=== PATIENT | female | born 1955 | race Caucasian/White ===

== ENCOUNTER 2022-11-11 11:24 | Emergency (ER) | payer MEDICARE, OTHER ==
[~2022-11-11] VITALS: Ht 315 cm; Wt 64.4 kg
--- OUTSIDE RECORDS SUMMARY | ~2022-11-11 | XMS | Continuity of Care Document ---
Demographics + + + | Address | [address] [place] [address] | | | [place] [address] | + + + | Preferred Language | Unknown | + + + | Marital Status | Never | + + + | Rastafari Affiliation | Unknown | + + + | Race | White | + + + | Ethnic Group | Not or | + + + Author + + + | Author | [facility] | + + + | Organization | [facility] | + + + | Address | [address] | | | [place] [address] | + + + | Phone | | + + + Care Team Providers + + + + | Care Associate Curator Name | Role | Phone | + + + + Unavailable | Unavailable | + + + + Allergies No information. Encounters No information. Functional Status No information. Immunizations No information. Medications No information. Problems + + + + | date | description | facility | + + + + | 2022-10-12 13:43 | UNSPECIFIED ABDOMINAL PAIN | [facility] | | | | | + + + + | 2022-10-12 13:43 | ALLERGY STATUS TO OTHER | [facility] | | | ANTIBIOTIC AGENTS STATUS | | + + + + | 2022-11-02 08:30 | DVTRCLI OF INTEST, PART | [facility] | | | UNSP, W/O PERF O | | + + + + | 2022-11-02 08:30 | LEFT LOWER QUADRANT PAIN | [facility] | + + + + | 2022-11-04 08:58 | DVRTCLOS OF LG INT W/O | [facility] | | | PERFORATION OR ABSCESS W/O | | + + + + | 2022-11-04 08:58 | DVTRCLI OF INTEST, PART | [facility] | | | UNSP, W/O PERF O | | + + + + | 2022-11-04 08:58 | DVTRCLI OF INTEST, PART | [facility] | | | UNSP, W/O PERF OR ABSCESS | | | | W/O BLEED | | + + + + | 2022-11-04 08:58 | LEFT LOWER QUADRANT PAIN | [facility] | + + + + | 2022-11-04 09:00 | DVTRCLI OF INTEST, PART | [facility] | | | UNSP, W/O PERF O | | + + + + | 2022-11-04 09:00 | LEFT LOWER QUADRANT PAIN | [facility] | + + + + Procedures No information. Results/Labs No information. Social History +--------+ + + | date | description | facility | +--------+ + + Vital Signs No information."
--- OUTSIDE RECORDS SUMMARY | ~2022-11-11 | XMS | Continuity of Care Document ---
Demographics + + + | Address | [address] [place] [address] | | | [place] [address] | + + + | Preferred Language | Unknown | + + + | Marital Status | Never | + + + | Gnosticist Affiliation | Unknown | + + + | Race | White | + + + | Ethnic Group | Not or | + + + Author + + + | Author | [facility] | + + + | Organization | [facility] | + + + | Address | [address] | | | [place] [address] | + + + | Phone | | + + + Care Team Providers + + + + | Care Field Support Technician Name | Role | Phone | + [...]
[~2022-11-11 11:24] MED LIST: HYDROCODON-ACE1 EA10 PO; HYDROXYZINE HCL50 MG PO; ONDANSETRON ODT8 MG PO
--- OUTSIDE RECORDS SUMMARY | 2022-11-11 11:26 | XMS ---
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 Anna has no Care Guidelines for this patient. EVonda VISIT COUNT (12 MO.) 2 [facility] TOTAL 2 NOTE: Visits indicate total known visits. ED/C VISIT TRACKING (12 MO.) [facility]22 [facility] [place] [facility] COMPLAINT: - ABD PAIN, N/V/D 10/12/2022 13:43 [facility] [place] TYPE: Emergency COMPLAINT: - ABD PAIN, BLOATING, DIARRHEA, NAUSEA DIAGNOSES: - Allergy status to other antibiotic agents - Unspecified abdominal pain INPATIENT VISIT TRACKING (12 MO.) No inpatient visits to display in this time frame [email or web address]
[2022-11-11 14:50] LABS: BASOPHILS 1.3 % (0-2); EOSINOPHILS 2.8 % (0-6); HEMATOCRIT 38.7 % (35.0-50.0); HEMOGLOBIN 13.1 g/dL (12.0-18.0); LYMPHOCYTES 39.4 % (24-44); MCH 32.3 (27-36); MCHC 33.9 g/dl (30-36); MCV 95.5 fl (81-99); MONOCYTES 9.7 % (0-12); NEUTROPHILS 46.8 % (39-80); PLATELET COUNT 199 K/uL (140-440); RBC 4.06 M/ul (4.3-5.7); RDW 12.8 (10.5-15.0)
[2022-11-11 15:06] LABS: ALBUMIN 3.9 g/dL (3.4-5.0); ALBUMIN/GLOBULIN RATIO 1.15 (1.1-2.4); ANION GAP 13.8 (7-21); BILIRUBIN, TOTAL 0.8 ng/dL (0.2-1.0); BUN/CREATININE RATIO 20.68 (6.0-28.6); CALCIUM 9.6 mg/dL (8.5-10.1); CREATININE, SERUM 0.58 mg/dL (0.55-1.02); POTASSIUM 3.8 mmol/L (3.5-5.1); PROTEIN, TOTAL 7.3 g/dL (6.4-8.2)
[2022-11-11 15:26] LABS: BILIRUBIN, URINE NEGATIVE (negative); BLOOD/HGB, URINE MODERATE (Negative); KETONE, URINE TRACE (Negative); LEUK ESTERASE, URINE NEGATIVE (negative); NITRITE, URINE NEGATIVE (negative); PH, URINE 5.5 (5-7)
[2022-11-11 15:33] LABS: BACTERIA, URINE RARE /hpf (negative); CASTS, URINE NONE SEEN \\lpf; CRYSTALS, URINE NONE SEEN (0-1+); EPITHELIAL CELLS, URINE SQUAMOUS 1+ /lpf (0-1+); REFLEX CULTURE, URINE No (No); WHITE BLOOD CELLS, URINE 0-1 /HPF (0-5)
[2022-11-11 15:34] LABS: COLLECTION TYPE, URINE CLEAN CATCH
[2022-11-11] MEDS ORDERED: HYDROCODON-ACE1 EA10 PO (16:46)
[2022-11-11 17:00] VITALS: BP 145/74
== END 2022-11-11 17:00 | disposition home or self-care (01) ==
LOC: ED 11:24
PROVIDERS: Emergency Medicine
DX: K57.92 Diverticulitis of intestine, part unspecified, without perforation or abscess without bleeding (principal); Z88.1 Allergy status to other antibiotic agents
CPT/HCPCS: 36415; 80053; 81001; 83690; 85025; 96365; 96367; 96375; 96376; 99284-25; J0744; J1170; J1885; J2405

== ENCOUNTER 2023-01-15 14:22 | Emergency (ER) | payer MEDICARE, OTHER ==
[~2023-01-15] VITALS: Ht 162.6 cm; Wt 64.4 kg
--- OUTSIDE RECORDS SUMMARY | 2023-01-15 14:25 | XMS ---
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 Anna has no Care Guidelines for this patient. Curtis VISIT COUNT (12 MO.) 3 [facility] TOTAL 3 NOTE: Visits indicate total known visits. ED/UCC VISIT TRACKING (12 MO.) 01/15/2023 14:22 [facility] [place] TYPE: Emergency COMPLAINT: - COLD SYMPTOMS 11/11/2022 11:24 [facility] [place] TYPE: Emergency COMPLAINT: - ABD PAIN, N/V/D DIAGNOSES: - Allergy status to other antibiotic agents - Diverticulitis of intestine, part unspecified, without perforation or abscess without bleeding - Left lower quadrant pain 10/12/2022 13:43 [facility] [place] TYPE: Emergency COMPLAINT: - ABD PAIN, BLOATING, DIARRHEA, NAUSEA DIAGNOSES: - Allergy status to other antibiotic agents - Unspecified abdominal pain INPATIENT VISIT TRACKING (12 MO.) No inpatient visits to display in this time frame [id number]
[2023-01-15] MEDS ORDERED: BENZONATATE100 MG PO (16:22)
[2023-01-15] MEDS ORDERED: PAXLOVID 300-11 EACH PO (16:22)
[2023-01-15 16:30] VITALS: BP 104/70
== END 2023-01-15 16:31 | disposition home or self-care (01) ==
LOC: ED 14:22
DX: U07.1 COVID-19 (principal); Z88.8 Allergy status to other drugs, medicaments and biological substances
CPT/HCPCS: 99283

== ENCOUNTER 2023-01-19 11:46 | Emergency (ER) | payer MEDICARE, OTHER ==
[~2023-01-19] VITALS: Ht 162.6 cm; Wt 64.4 kg
[~2023-01-19 11:46] MED LIST changes: +BENZONATATE100 MG PO; +PAXLOVID 300-11 EACH PO
--- OUTSIDE RECORDS SUMMARY | 2023-01-19 11:48 | XMS ---
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 Anna has no Care Guidelines for this patient. Curtis V[facility] (12 MO.) [facility] 4 NOTE: Visits indicate total known visits. ED/C VISIT TRACKING (12 MO.) 01/19/2023 11:47 [facility] [place] [facility] COMPLAINT: - ABD PAIN, NAUSEA 01/15/2023 14:22 [facility] [place] TYPE: Emergency COMPLAINT: - COLD SYMPTOMS DIAGNOSES: - Allergy status to other drugs, medicaments and biological substances - COVID-19 - Fever, unspecified 11/11/2022 11:24 [facility] [place] TYPE: Emergency COMPLAINT: - ABD PAIN, N/V/D DIAGNOSES: - Allergy status to other antibiotic agents - Diverticulitis of intestine, part unspecified, without perforation or abscess without bleeding - Left lower quadrant pain 10/12/2022 13:[address] [facility] [place] TYPE: Emergency COMPLAINT: - ABD PAIN, BLOATING, DIARRHEA, NAUSEA DIAGNOSES: - Allergy status to other antibiotic agents - Unspecified abdominal pain INPATIENT VISIT TRACKING (12 MO.) No inpatient visits to display in this time frame [id number]
[2023-01-19 12:18] LABS: BASOPHILS 0.7 % (0-2); EOSINOPHILS 1.4 % (0-6); HEMATOCRIT 37.6 % (35.0-50.0); HEMOGLOBIN 12.7 g/dL (12.0-18.0); LYMPHOCYTES 27.9 % (24-44); MCH 32.2 (27-36); MCHC 33.8 g/dl (30-36); MCV 95.4 fl (81-99); MONOCYTES 9.1 % (0-12); NEUTROPHILS 60.9 % (39-80); PLATELET COUNT 165 K/uL (140-440); RBC 3.94 M/ul (4.3-5.7); RDW 13.4 (10.5-15.0)
[2023-01-19 12:36] LABS: ALBUMIN 3.6 g/dL (3.4-5.0); ALBUMIN/GLOBULIN RATIO 0.97 (1.1-2.4); ANION GAP 16.2 (7-21); BILIRUBIN, TOTAL 0.3 ng/dL (0.2-1.0); BUN/CREATININE RATIO 15.62 (6.0-28.6); CALCIUM 8.8 mg/dL (8.5-10.1); CREATININE, SERUM 0.64 mg/dL (0.55-1.02); POTASSIUM 4.2 mmol/L (3.5-5.1); PROTEIN, TOTAL 7.3 g/dL (6.4-8.2)
[2023-01-19 13:07] LABS: BILIRUBIN, URINE NEGATIVE (negative); BLOOD/HGB, URINE MODERATE (Negative); KETONE, URINE TRACE (Negative); LEUK ESTERASE, URINE NEGATIVE (negative); NITRITE, URINE NEGATIVE (negative)
[2023-01-19 13:20] LABS: CRYSTALS, URINE NONE SEEN (0-1+); EPITHELIAL CELLS, URINE 0 /lpf (0-1+); WHITE BLOOD CELLS, URINE 0-1 /HPF (0-5)
[2023-01-19 13:21] LABS: BACTERIA, URINE NONE SEEN /hpf (negative); CASTS, URINE NONE SEEN \\lpf; COLLECTION TYPE, URINE CLEAN CATCH; REFLEX CULTURE, URINE No (No)
[2023-01-19] MEDS ORDERED: AMOX TR-K CLV1 EAC1 PO (14:24)
[2023-01-19] MEDS ORDERED: HYDROCODON-ACE1 EA10 PO (14:24)
[2023-01-19 14:41] VITALS: BP 108/73
== END 2023-01-19 14:40 | disposition home or self-care (01) ==
LOC: ED 11:46
PROVIDERS: Student in an Organized Health Care Education/Training Program
DX: K57.32 Diverticulitis of large intestine without perforation or abscess without bleeding (principal); Z88.1 Allergy status to other antibiotic agents; Z79.899 Other long term (current) drug therapy
CPT/HCPCS: 36415; 74177; 80053; 81001; 83690; 85025; 96375; 99284-25; J2270; J2405; Q9967

== ENCOUNTER 2023-08-10 15:30 | Emergency (ER) | payer MEDICARE, OTHER ==
[~2023-08-10] VITALS: Ht 162.6 cm; Wt 61.1 kg
[~2023-08-10 15:30] MED LIST changes: +AMOX TR-K CLV1 EAC1 PO; +CIPRO500 MG PO; +METRONIDAZOLE500 MG PO
--- OUTSIDE RECORDS SUMMARY | 2023-08-10 15:32 | XMS ---
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 Anna has no Care Guidelines for this patient. Curtis VISIT COUNT (12 MO.) 6 ANTONINO Brown TOTAL 6 NOTE: Visits indicate total known visits. ED/UCC VISIT TRACKING (12 MO.) 08/10/2023 15:31 [facility] [place] TYPE: Emergency COMPLAINT: - ABDOMINAL PAIN 04/25/2023 09:[address] [facility] [place] TYPE: Emergency COMPLAINT: - ABD PAIN, NAUSEA, DIZZY DIAGNOSES: - Allergy status to analgesic agent - Allergy status to other antibiotic agents - Diverticulitis of large intestine without perforation or abscess without bleeding - Left lower quadrant pain 01/19/2023 11:[address] [facility] [place] TYPE: Emergency COMPLAINT: - ABD PAIN, NAUSEA DIAGNOSES: - Allergy status to other antibiotic agents - Diverticulitis of large intestine without perforation or abscess without bleeding - Other fpc (current) drug therapy - Right lower quadrant pain 01/15/2023 14:[address] [facility] [place] TYPE: Emergency COMPLAINT: - COLD [...] visits to display in this time frame [id number]
[2023-08-10] MEDS ORDERED: ondansetron HCL 4 MG/2 ML VIAL IV ONE ×2 (16:45→17:30)
[2023-08-10 16:46] LABS: BILIRUBIN, URINE NEGATIVE (negative); BLOOD/HGB, URINE TRACE-I (Negative); KETONE, URINE NEGATIVE (Negative); LEUK ESTERASE, URINE NEGATIVE (negative); NITRITE, URINE NEGATIVE (negative)
[2023-08-10 16:58] LABS: BACTERIA, URINE NONE SEEN /hpf (negative); CASTS, URINE NONE SEEN \\lpf; COLLECTION TYPE, URINE CLEAN CATCH; CRYSTALS, URINE NONE SEEN (0-1+); EPITHELIAL CELLS, URINE SQUAMOUS 1+ /lpf (0-1+); RED BLOOD CELLS, URINE 0-1 /hpf (0-5); REFLEX CULTURE, URINE No (No); WHITE BLOOD CELLS, URINE 0-1 /HPF (0-5)
[2023-08-10] MEDS ORDERED: SODIUM CHLORIDE 0.9% 1,000 ML IV ONE (17:30)
[2023-08-10] MEDS ORDERED: HYDROmorphone HCL 1 MG/ML SYR IV PRN (17:30)
[2023-08-10 17:43] LABS: BASOPHILS 0.7 % (0-2); EOSINOPHILS 2.2 % (0-6); HEMATOCRIT 35.8 % (35.0-50.0); LYMPHOCYTES 38.8 % (24-44); MCH 33.1 (27-36); MCHC 33.6 g/dl (30-36); MCV 98.4 fl (81-99); MONOCYTES 8.5 % (0-12); NEUTROPHILS 49.8 % (39-80); PLATELET COUNT 194 K/uL (140-440); RBC 3.63 M/ul (4.3-5.7); RDW 13.1 (10.5-15.0)
[2023-08-10 17:57] LABS: ALBUMIN 3.3 g/dL (3.4-5.0); ALBUMIN/GLOBULIN RATIO 1.06 (1.1-2.4); ANION GAP 13.3 (7-21); BILIRUBIN, TOTAL 0.2 ng/dL (0.2-1.0); BUN/CREATININE RATIO 17.14 (6.0-28.6); CALCIUM 8.8 mg/dL (8.5-10.1); CREATININE, SERUM 0.7 mg/dL (0.55-1.02); POTASSIUM 3.3 mmol/L (3.5-5.1); PROTEIN, TOTAL 6.4 g/dL (6.4-8.2)
[2023-08-10] MEDS ORDERED: PROMETHAZINE HC25 M1 PO (18:49)
[2023-08-10] MEDS ORDERED: TRAMADOL HCL50 MG PO (18:49)
[2023-08-10 19:21] VITALS: BP 132/82
== END 2023-08-10 19:21 | disposition home or self-care (01) ==
LOC: ED 15:30
PROVIDERS: Emergency Medicine
DX: R10.31 Right lower quadrant pain (principal); R10.32 Left lower quadrant pain; Z88.6 Allergy status to analgesic agent; Z88.1 Allergy status to other antibiotic agents
CPT/HCPCS: 36415; 74177; 80053; 81001; 83690; 85025; 96375; 96376; 99284-25; J1170; J2405; J7030; Q9967

== ENCOUNTER 2023-11-01 06:00 | Day surgery (SDC) | payer MEDICARE, OTHER ==
[2023-10-30 15:28] VITALS: BP 118/72
[~2023-11-01] VITALS: Ht 162.6 cm; Wt 56.8 kg
[~2023-11-01 06:00] MED LIST changes: +ADVIL200 M1 PO; +DICLOFENAC SODI50 MG PO; +MIDAZOLAM HCL 5 MG/5 ML VIAL IV PRN; +PROMETHAZINE HC25 M1 PO; +TRAMADOL HCL50 MG PO; +UNISOM SLEEPMEL25 MG PO; +fentaNYL citrate 100 MCG/2 ML VIAL IV PRN
[2023-11-01 06:09] VITALS: BP 115/70
[2023-11-01] MEDS ORDERED: propofoL 200 MG/20 ML VIAL ONE (06:39)
[2023-11-01] MEDS ORDERED: LIDOCAINE HCL 1% 5 ML SDV INJ ONE (07:00)
[2023-11-01] MEDS ORDERED: LACTATED RINGER'S 1,000 ML IV SCH (07:00)
[2023-11-01] MEDS ORDERED: IBLOOD GLUCOSE TEST STRIP 1 EA TEST VI PRN (07:00)
--- NOTE | 2023-11-01 07:32 | NUR ---
PT GONE FOR PROCEDURE. PROVIDED PRAYER.
[2023-11-01] MEDS ORDERED: LACTATED RINGER'S 1,000 ML IV ONE (07:49)
--- NOTE | 2023-11-01 08:04 | NUR ---
11/01/23 0804 Shanita Sanchez 0800-PATIENT ARRIVED TO PACU ON 10L MASK DROWSY MOVES UPPER EXTREMITIES. ORIENTED TO PACU. PLACED ON 6L MASK RR EVEN. SR HR 60'S PATIENT LAYING SUPINE ABDOMEN SOFT. IVF INFUSING. PATIENT ENCOURAGED TO PASS GAS REPORTS "STOMACH HURTS" PATIENT EASILY DOZES BACK TO SLEEP.
[2023-11-01 08:31] VITALS: BP 117/61
--- NOTE | 2023-11-01 09:49 | OR ---
[facility] [address] [place], [place] [address] Signed DATE OF OPERATION: 11/01/2023 SURGEON: Roxana Davis MD PREOPERATIVE DIAGNOSES: 1. Change in bowel habits, increased frequency of stool. 2. Fecal urgency. 3. Anorexia. 4. Weight loss. 5. Diverticulosis. 6. Personal history of colonic polyps in March 2022. POSTOPERATIVE DIAGNOSES: 1. Mild to moderate pandiverticulosis. 2. Tortuous sigmoid colon. 3. Minimal to moderate internal hemorrhoids. 4. 3 mm rectal polyps x3 at 6 cm. PROCEDURE: Colonoscopy with hot biopsy and cold biopsy of the right colon, transverse colon, left colon and sigmoid colon. ESTIMATED BLOOD LOSS: None. INDICATIONS: Marisela is a 68-year-old female, asked to see me for a followup colonoscopy. 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 She really loved [place] and hated to come back to [facility]. She misses the food and the culture. She said it was very stressful when she got home. Her brother from some type of unknown metastatic cancer. She had three additional family members , all within the last 18 to 24 months. This has placed her under tremendous amount of stress. She has been anorexic and lost 10 to 15 pounds. It changed her bowel habits and she is now having 3 to 5 bowel movements a day. It is usually soft if not liquidy at times. Of course, she is having some fecal urgency as well. She stopped drinking wine because it was bothering her stomach. She is now drinking a little beer each night. She actually had a colonoscopy in March [address] Garnett for the same issues. The random biopsies were all negative including the terminal ileum. A small serrated adenomatous polyp was taken out of the cecum. It is also mentioned that her sigmoid colon is fairly narrow with diverticular disease. She took a large amount of medication including 10 mg of Electronically Signed By: ROXANA DAVIS MD 11/01/23 0949 PATIENT NAME: MARISELA LOCKHART OPERATIVE REPORT DATE OF : 51 REPORT #: [id number] PHYSICIAN: ROXANA DAVIS MD PCP: LATANYA BARTON MD REPORT IS CONFIDENTIAL AND NOT TO BE RELEASED WITHOUT AUTHORIZATION [facility] [address] [place], [place] [address] Signed Versed and 200 mcg of fentanyl to cover the procedure. She had been asked to follow up in a year. She has actually been to our emergency room several times with ongoing complaints. CT scan showed there may have been some very minimal inflammatory changes around the proximal sigmoid colon. A more recent CT scan was unremarkable. She thinks she gave some stool studies to her primary care provider. In the meantime, she was asked to see me for a followup colonoscopy. In the office, I gave her a pamphlet on colonoscopy. We reviewed the nature of the test. There is risk including, but not limited to gas bloating, crampy abdominal pain, bleeding, perforation requiring surgery, and missed diagnosis. We also reviewed the written instructions for a bowel prep line by line. Also, we talked about monitored anesthesia care with propofol infusion due to her daily alcohol use as well as her need for a large amount of Versed and fentanyl on her last colonoscopy. In that regard, she needed preoperative blood work and an EKG. She understands an adult person has to take her home afterwards. She had expressed understanding and wished to proceed. PROCEDURE IN DETAIL: Marisela was taken into our endoscopy suite and placed in the left lateral decubitus position. Indeed, she was given a large amount of propofol throughout the procedure. At the very end of the case, it was quite impressive. She sat up and was communicating with us when the propofol drip was turned off. A digital rectal exam had been performed, she had good sphincter tone. There were no masses. There were no external hemorrhoids. The adult colonoscope was introduced and advanced under direct visualization of the camera. Indeed she is small of build and it took a few minutes to get through her tortuous sigmoid colon but eventually we made it to the hepatic flexure. It took a few minutes to get around the hepatic flexure and then down into the cecum itself with some additional propofol as well as abdominal compression. Her prep was quite excellent. We could easily see the appendiceal orifice and the ileocecal valve. We did not turn the scope up into the terminal ileum as she just had that done in March 2022. The scope was then slowly withdrawn. We took pictures throughout for photodocumentation. We saw no pathology throughout her entire colon. The only thing she has is the diverticulosis. It is mild to moderate in size, few in number and scattered about throughout the colon. We went ahead and took random biopsies throughout the colon for pathologic review due to her ongoing symptoms. Once in the rectum, we had taken out three tiny polyps at 6 cm with the hot biopsy forceps. We retroflexed the scope and she has minimal to moderate internal hemorrhoid columns. After this, the gas was suctioned out and the colonoscope removed. Marisela tolerated the procedure quite well. RECOMMENDATIONS: I will see Marisela back in my office in 7 to 14 days to review her results. It looks like she is dealing with a tremendous amount of stress resulting in some level of irritable bowel syndrome. In addition, she should probably always consider using Electronically Signed By: ROXANA DAVIS MD 11/01/23 0949 PATIENT NAME: MARISELA LOCKHART OPERATIVE REPORT DATE OF : 51 REPORT #: [id number] PHYSICIAN: ROXANA DAVIS MD PCP: LATANYA BARTON MD REPORT IS CONFIDENTIAL AND NOT TO BE RELEASED WITHOUT AUTHORIZATION [address] [address] Signed monitored anesthesia care in the future. Roxana Davis MD ALB/MODL /[id number] cc: MD Latanya Lira MD Copies: ROXANA DAVIS MD ~ Electronically Signed By: ROXANA DAVIS MD 11/01/23 0949 PATIENT NAME: MARISELA LOCKHART OPERATIVE REPORT DATE OF : 51 REPORT #: [id number] PHYSICIAN: ROXANA DAVIS MD PCP: LATANYA BARTON MD REPORT IS CONFIDENTIAL AND NOT TO BE RELEASED WITHOUT AUTHORIZATION
--- NOTE | 2023-11-03 11:29 | PATH ---
[facility] [address] [facility] [place], [place] [address] Signed SPECIMEN(S): A COLON POLYP, 6 CM SPECIMEN(S): B ASCENDING BIOPSY SPECIMEN(S): C TRANSVERSE BIOPSY SPECIMEN(S): D DESCENDING BIOPSY SPECIMEN(S): E SIGMOID BIOPSY SPECIMEN SOURCE: A. COLON POLYP, 6 CM B. ASCENDING BIOPSY C. TRANSVERSE BIOPSY D. DESCENDING BIOPSY E. SIGMOID BIOPSY CLINICAL HISTORY: Diverticulosis/fecal urgency/history of polyps; post: Diverticulosis/rectal polyps/tortuous sigmoid colon FINAL PATHOLOGIC DIAGNOSIS: A. Colon polyp at 6 cm, biopsies: - Fragments of hyperplastic polyp. B. Ascending colon, biopsy: - Benign lymphoid polyp. C. Transverse colon, biopsy: - Mildly hyperplastic colonic mucosa, negative for active colitis, granulomas or dysplasia. D. Descending colon, biopsies: - Unremarkable colonic mucosa, negative for active colitis, granulomas or dysplasia. E. Sigmoid colon, biopsy: - Mildly hyperplastic colonic mucosa, negative for active colitis, granulomas or dysplasia. AMB MICROSCOPIC EXAMINATION: Histologic sections of all submitted blocks are examined by light microscopy. These findings, together with the gross examination, support the pathologic diagnosis. GROSS DESCRIPTION: A. , colon polyp at 6 cm," is received in formalin and consists of three delacruz soft tissue fragments, ranging from 0.2 cm. Entirely submitted in (A1). PATIENT NAME: MARISELA LOCKHART PATHOLOGY DATE OF : 51 REPORT #: [id number] PHYSICIAN: [facility] PCP: BRIEN BARTON MD REPORT IS CONFIDENTIAL AND NOT TO BE RELEASED WITHOUT AUTHORIZATION [facility] [address] [place], [place] [address] Signed B. , ascending colon biopsy," is received in formalin and consists of one delacruz soft tissue fragment, 0.2 cm. Entirely submitted in (B1). C. , transverse colon biopsy," is received in formalin and consists of one delacruz soft tissue fragment, 0.1 cm. Entirely submitted in (C1). D. , descending colon biopsy," is received in formalin and consists of two delacruz soft tissue fragments, ranging from 0.1 cm. Entirely submitted in (D1). E. , sigmoid colon biopsy," is received in formalin and consists of one delacruz soft tissue fragment, 0.2 cm. Entirely submitted in (E1). JS (under the direct supervision of a pathologist) The Gross Description was prepared using a voice recognition system. The report was reviewed for accuracy; however, sound-alike word errors, addition and/or deletions may occur. If there is any question about this report, please contact Client Services. ADDITIONAL NOTES: Immunohistochemical and/or in situ hybridization studies if performed in this case included appropriate positive controls that reacted as expected. This test was developed and its performance characteristics determined by [facility]. It has not been cleared or approved by the U.S. Food and Drug Administration. The FDA has determined that such clearance or approval is not necessary. This test is used for clinical purposes. It should not be regarded as investigational or for research. [facility] is certified under the Clinical Laboratory Improvement Amendments of 1988 (CLIA) as qualified to perform high complexity clinical laboratory testing. PERFORMING LABORATORY: Technical component was performed by [facility], [address] [place] [id number] (CLIA# [id number]). Professional interpretation was performed by [facility] - [place] [id number] [facility] [id number] Diagnostician: Mercy Winston MD Pathologist Electronically Signed 11/03/2023 Copies: PATIENT NAME: MARISELA LOCKHART PATHOLOGY DATE OF : 51 REPORT #: [id number] PHYSICIAN: [facility] PCP: BRIEN BARTON MD REPORT IS CONFIDENTIAL AND NOT TO BE RELEASED WITHOUT AUTHORIZATION [address] [place], [place] [address] Signed ~ PATIENT NAME: MARISELA LOCKHART PATHOLOGY DATE OF : 51 REPORT #: [id number] PHYSICIAN: [facility] PCP: BRIEN BARTON MD REPORT IS CONFIDENTIAL AND NOT TO BE RELEASED WITHOUT AUTHORIZATION
== END 2023-11-01 08:40 | disposition home or self-care (01) ==
LOC: DS 06:00
PROVIDERS: ATTEND Colon & Rectal Surgery
PROC: 0DBL8ZX Excision of Transverse Colon, Via Natural or Artificial Opening Endoscopic, Diagnostic (ICD-10-PCS; 2023-11-01)
PROC: 0DBN8ZX Excision of Sigmoid Colon, Via Natural or Artificial Opening Endoscopic, Diagnostic (ICD-10-PCS; 2023-11-01)
PROC: 0DBF8ZX Excision of Right Large Intestine, Via Natural or Artificial Opening Endoscopic, Diagnostic (ICD-10-PCS; 2023-11-01)
PROC: 0DBG8ZX Excision of Left Large Intestine, Via Natural or Artificial Opening Endoscopic, Diagnostic (ICD-10-PCS; principal; 2023-11-01 07:30)
DX: K63.5 Polyp of colon (principal); K62.1 Rectal polyp; K63.89 Other specified diseases of intestine; R15.2 Fecal urgency; R63.4 Abnormal weight loss; K57.30 Diverticulosis of large intestine without perforation or abscess without bleeding; K64.8 Other hemorrhoids; R19.4 Change in bowel habit; F17.210 Nicotine dependence, cigarettes, uncomplicated; Z79.899 Other long term (current) drug therapy; Z88.8 Allergy status to other drugs, medicaments and biological substances; Z86.010 Personal history of colon polyps
CPT/HCPCS: 00811; J2704; J7121